=== PATIENT | female | born 1965 | race Caucasian/White ===

== ENCOUNTER 2019-11-04 18:08 | Emergency (ER) | payer OTHER ==
[~2019-11-04] VITALS: Ht 170 cm; Wt 100.0 kg
--- OUTSIDE RECORDS SUMMARY | 2019-11-04 18:48 | XMS REPORT | Continuity of Care Document ---
Author Organization Unknown Address Unknown Phone Unavailable Allergies Active Description Code Type Severity Reaction Onset Reported/Identified Relationship to Patient Clinical Status Yes PENICILLINS 476 Drug Allergy N/A Other 11/21/2018 Medications Medication Packaging Start Date St op Date Route Dosage Sig HYDROCODONE 5 MG-ACETAMINOPHEN 325 MG TABL ET 11/21/2018 11/21/2018 oral 5002 t ablet X1 Problems Date Dx Coded Attending Type Code Diagnosis Diagnosed By 11/21/2018 APRIL ANDERSEN S20.212D Contusion of left front wall of thorax, 11/21/2018 APRIL ANDERSEN S20.212D Contusion of left front wall of thorax, 11/21/2018 APRIL ANDERSEN S20.212D Contusion of left front wall of thorax, 11/21/2018 APRIL ANDERSEN S20.212D Contusion of left front wall of thorax, 11/21/2018 APRIL ANDERSEN S20.212D Contusion of left front wall of thorax, 11/21/2018 ARPIL ANDERSEN S20.212D Contusion of left front wall of thorax, Procedures There is no data. Results There is no data. Encounters ACCT No. Visit Date/Time Discharge Status Pt. Type Provider Facility Loc./Unit Complaint [id number] 11/21/2018 12:41:09 2018 13:49:00 DIS Emergency APRIL ANDERSEN at [address]
[2019-11-04] MEDS ORDERED: PRD20T PO (18:50)
[2019-11-04] MEDS ORDERED: PERM60CR4 TP (18:50)
--- NOTE | 2019-11-04 18:50 | ED Integumentary General ---
General Chief Complaint: Allergic Reaction Stated Complaint: RASH Nursing Triage Note: THE PT IS AMBULATORY TO THE ROOM WITHOUT DIFFICULTY. NO DISTRESS IS SEEN ON ARRIVAL. LOC IS NORMAL FOR THE PT. THE PT C/O OF A SKIN RASH ON BOTH ARMS. History of Present Illness Date Seen by Provider: Nov 04, 2019 Time Seen by Provider: 18:30 Initial Comments 54-year-old female arrives for complaints of rash to bilateral upper extremities and chest. She's had it intermittently for approximately 2 years. It is pruritic, she has not tried any OTC or Rx meds. 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 No household members have similar rash. She does not have a PCP and "does not like doctors or hospitals" Timing/Duration: intermittent Location: torso, hands, extremities (Upper) Possible Cause: no cause identified Associated Symptoms: change in skin texture, rash Allergies and Home Medications Home Medications Permethrin 60 Gm Cream..g., 60 GM TP ONCE apply thoroughly from below chin to toes at HS. Shower the next am Prescribed by: JOSIANE OSBORN on 11/04/191849 Prednisone 20 Mg Tab, 40 MG PO DAILY Prescribed by: JOSIANE OSBORN on 11/04/191849 Patient Home Medication List Home Medication List Reviewed: Yes Review of Systems Review of Systems Constitutional: no symptoms reported, see HPI Skin: see HPI, lesions, pruritus, rash All Other Systems Reviewed Negative Unless Noted: Yes Past Wqfaytd-Cjivml-Bmvpet Hx Past Med/Social Hx: Reviewed Nursing Past Med/Soc Hx Patient Social History Recent Foreign Travel: No Contact w/Someone Who Travel: No Recent Infectious Disease Expo: No Physical Abuse: No Sexual Abuse: No Mistreated: No Fear: No Physical Exam Vital Signs Vital Signs - First Documented 11/04/19 11/04/19 18:23 19:00 Temp 36.7 Pulse 82 Resp 16 B/P (MAP) 170/90 (116) Pulse Ox 99 Capillary Refill : Less Than 3 Seconds General Appearance: WD/WN, no apparent distress Cardiovascular: normal peripheral pulses, regular rate, rhythm Respiratory: chest non-tender, lungs clear, normal breath sounds Extremities: normal range of motion, non-tender, normal inspection, normal capillary refill Neurologic/Psychiatric: no motor/sensory deficits, alert, normal mood/affect, oriented x 3 Skin: normal color, warm/dry Skin Problem Location: upper extremities, torso Skin Problem Character: erythema, lesion, linear (with scabbing from itching) Lymphatic: no adenopathy Progress/Results/Core Measures Results/Orders Vital Signs/I&O 11/04/19 11/04/19 18:23 19:00 Temp 36.7 36.7 Pulse 82 82 Resp 16 16 B/P (MAP) 170/90 (116) 170/90 Pulse Ox 99 Blood Pressure Mean: 116 Departure Impression Primary Impression: Scabies Disposition: 01 HOME, SELF-CARE Condition: Improved Departure-Patient Inst. Decision time for Depature: 18:45 Referrals: NO,LOCAL PHYSICIAN (PCP/Family) Primary Care Physician Patient Instructions: Scabies (DC) Scripts Prednisone (Prednisone) 20 Mg Tab 40 MG PO DAILY, #6 TAB 0 Refills Prov: JOSIANE OSBORN 11/04/19 Permethrin (Permethrin) 60 Gm Cream..g. 60 GM TP ONCE for 1 Day, #1 TUBE 0 Refills apply thoroughly from below chin to toes at HS. Shower the next am Prov: JOSIANE OSBORN 11/04/19 JOSIANE OSBORN Nov 04, 2019 18:50
[2019-11-04 19:00] VITALS: BP 170/90
== END 2019-11-04 19:02 | disposition home or self-care (01) ==
LOC: ER 18:09
DX: B86 Scabies (principal); Z79.52 Long term (current) use of systemic steroids
CPT/HCPCS: 99282

== ENCOUNTER 2019-11-16 00:33 | Emergency (ER) | payer OTHER ==
[~2019-11-16] VITALS: Ht 165 cm; Wt 102.0 kg
[~2019-11-16 00:33] MED LIST: PERM60CR4 TP; PRD20T PO
--- OUTSIDE RECORDS SUMMARY | 2019-11-16 00:42 | XMS REPORT | Continuity of Care Document ---
Demographics Preferred Language Unknown Marital Status Unknown Episcopal Affiliation Unknown Race Unknown Ethnic Group Unknown Author Organization Unknown Address Unknown Phone Unavailable Allergies Active Description Code Type Severity Reaction Onset Reported/Identified Relationship to Patient Clinical Status Yes PENICILLINS 476 Drug Allergy N/A Other 11/21/2018 Medications There is no data. Problems Date Dx Coded Attending Type Code Diagnosis Diagnosed By 11/21/2018 S20.212D C ontusion of left front wall of thorax, Procedures There is no data. Results There is no data. Encounters ACCT No. Visit Date/Time Discharge Status Pt. Type Provider Facility Loc./Unit Complaint [id number] 05/16/2019 10:58:12 Document Registration
[2019-11-16 01:25] VITALS: BP 168/95
[2019-11-16] MEDS ORDERED: PERM60CR4 TP (01:31)
--- NOTE | 2019-11-16 01:31 | ED Integumentary General ---
General Chief Complaint: Bite-Animal/Human/Insect Stated Complaint: BLISTERS ON HANDS Source: patient Exam Limitations: no limitations History of Present Illness Date Seen by Provider: Nov 16, 2019 Time Seen by Provider: 01:18 Initial Comments Here with return of sores on her hands and arms. She was treated for scabies and 11/04/19. Things got better until about 2 days ago and the sores returned consistent with recrudescence of scabies infestation. Timing/Duration: getting worse, other (2 days ago) Location: extremities Possible Cause: insect bite Allergies and Home Medications Allergies Coded Allergies: Penicillins (Verified Allergy, Unknown, 11/16/19) Home Medications Permethrin 60 Gm Cream..g., 60 GM TP ONCE apply thoroughly from below chin to toes at HS. Shower the next am Prescribed by: JOSIANE OSBORN on 11/04/191849 Prednisone 20 Mg Tab, 40 MG PO DAILY Prescribed by: JOSIANE OSBORN on 11/04/191849 Patient Home Medication List Home Medication List Reviewed: Yes Review of Systems Review of Systems Constitutional: see HPI; No chills, No fever Respiratory: no symptoms reported Cardiovascular: no symptoms reported Skin: see HPI, change in color, lesions, pruritus Past Rlykgdu-Ydvgrn-Jrpgif Hx Past Med/Social Hx: Reviewed Nursing Past Med/Soc Hx Patient Social History Alcohol Use: Occasionally Uses Recreational Drug Use: No Smoking Status: Never a Smoker Recent Foreign Travel: No Contact w/Someone Who Travel: No Family Medical History Reviewed Nursing Family Hx Physical Exam Vital Signs Capillary Refill : General Appearance: WD/WN, no apparent distress Cardiovascular: regular rate, rhythm, no murmur Respiratory: lungs clear, normal breath sounds Skin: warm/dry Skin Problem Location: upper extremities Skin Problem Character: macules, other (. All areas of macules/papules that are pruritic and consistent with scabies infestation) Progress/Results/Core Measures Progress Progress Note : Progress Note Seen and evaluated. Discussed retreatment for scabies. Discharged home with return precautions. Patient verbalize understanding instructions and agreement with plan. Departure Impression Primary Impression: Scabies infestation Disposition: HOME, SELF-CARE Condition: Stable Departure-Patient Inst. Decision time for Depature: 01:28 Referrals: NO,LOCAL PHYSICIAN (PCP/Family) Primary Care Physician Patient Instructions: Scabies (DC) Add. Discharge Instructions: All discharge instructions reviewed with patient and/or family. Voiced und erstanding. Use medications as directed. Follow-up with your Dr. in a few days for recheck. Return for worse pain, fever, red streaks up the arms or other concerns as needed. Scripts Permethrin (Permethrin) 60 Gm Cream..g. 60 GM TP ONCE, #1 TUBE Apply thoroughly from below chin to toes at HS. Shower the next am Prov: RANDY HARGROVE MD 11/16/19 RANDY HARGROVE MD Nov 16, 2019 01:30
== END 2019-11-16 01:33 | disposition home or self-care (01) ==
LOC: EDUNIT# 00:33 → ER 00:37
DX: B86 Scabies (principal); Z88.0 Allergy status to penicillin
CPT/HCPCS: 99283